=== PATIENT | female | born 1940 ===

== ENCOUNTER 2016-11-03 06:09 | Emergency (ER) | payer MEDICAID ==
[2016-11-03 06:09] VITALS: BMI 32.0
--- NOTE | 2016-11-03 06:41 | ED PDOC ---
HPI: General Adult Time Seen by Provider: 11/03/16 06:25 Chief Complaint (Nursing): ENT Problem Chief Complaint (Provider): nosebleed History Per: Patient History/Exam Limitations: no limitations Onset/Duration Of Symptoms: Mins Have you had recent travel within the past 21 days to any of the following countries: [place], [place], [place] or [place]?: No Current Symptoms Are (Timing): Still Present Additional Complaint(s): 76yo female with PMHx including HTN presents to the ED, with son, with c/o intermittent nosebleeds for past 3 weeks. Son states patient has had "many organs taken out." Patient reports nosebleed started acutely this morning from right nare. Patient does not take blood thinners. Denies fever, vomiting, precipitating factors. Past Medical History Reviewed: Historical Data, Nursing Documentation, Vital Signs Vital Signs: Last Vital Signs Temp 97.9 F 11/03/16 07:10 Pulse 75 11/03/16 07:10 Resp 16 11/03/16 07:10 BP 143/75 11/03/16 07:10 Pulse Ox 98 11/03/16 07:53 - Medical History PMH: Arthritis, Back Problems, Gastritis, HTN, Hypercholesterolemia, Osteoporosis Denies: Diabetes, Chronic Kidney Disease - Surgical History Surgical History: Back Surgery - Family History Family History: States: No Known Family Hx - Social History Current smoker - smoking cessation education provided: No Alcohol: None Drugs: Denies - Immunization History Hx Tetanus Toxoid Vaccination: No Hx Influenza Vaccination: Yes Hx Pneumococcal Vaccination: No - Home Medications Home Medications: Ambulatory Orders Medication Instructions Recorded Omeprazole [Prilosec] 20 mg PO DAILY 11/01/15 Aspirin [Ecotrin] 81 mg PO DAILY #0 tabec 11/02/15 Donepezil [Aricept] 5 mg PO HS #0 tab 11/02/15 Ergocalciferol (Vitamin D2) 50,000 unit PO SAT #0 capsule 11/02/15 [Vitamin D2] Losartan/Hydrochlorothiazide 1 tab PO DAILY #0 tablet 11/02/15 [Hyzaar 50-12.5 Tablet] Memantine HCl [Namenda] 5 mg PO DAILY #0 tablet 11/02/15 traMADol [Ultram] 50 mg PO TID PRN #0 tab 11/02/15 Simvastatin 10 mg PO HS 11/09/15 amLODIPine [Norvasc] 10 mg PO DAILY 11/09/15 Amoxicillin/Clavulanate [Augmentin 1 tab PO BID 7 Days 11/03/16 875 MG-125 MG] traMADol [Ultram] 50 mg PO TID #14 tab 11/03/16 - Allergies Allergies/Adverse Reactions: Allergies Allergy/AdvReac Type Severity Reaction Status Date / Time No Known Allergies Allergy Verified 11/01/15 12:45 Review of Systems ROS Statement: Except As Marked, All Systems Reviewed And Found Negative Constitutional: Negative for: Fever ENT: Positive for: Other (nosebleed ) Gastrointestinal: Negative for: Vomiting Physical Exam - Reviewed Nursing Documentation Reviewed: Yes Vital Signs Reviewed: Yes - Physical Exam Appears: Positive for: Well, No Acute Distress Head Exam: Positive for: ATRAUMATIC, NORMAL INSPECTION, NORMOCEPHALIC Skin: Positive for: Normal Color, Warm, Dry Eye Exam: Positive for: Normal appearance, EOMI, PERRL ENT: Positive for: Other (bleeding from right nare, no hematoma, no laceration, no clots ) Neck: Positive for: Normal, Painless ROM, Supple Cardiovascular/Chest: Positive for: Regular Rate, Rhythm. Negative for: Murmur , Tachycardia Respiratory: Positive for: Normal Breath Sounds. Negative for: Wheezing, Respiratory Distress Gastrointestinal/Abdominal: Positive for: Normal Exam, Bowel Sounds, Soft. Negative for: Tenderness Back: Positive for: Normal Inspection. Negative for: L CVA Tenderness, R CVA Tenderness Extremity: Positive for: Normal ROM. Negative for: Deformity, Swelling Neurologic/Psych: Positive for: Alert, Oriented - Laboratory Results Result Diagrams: 11/03/16 06:51 11/03/16 06:51 - ECG O2 Sat by Pulse Oximetry: 96 Pulse Ox Interpretation: Normal (RA) Medical Decision Making Medical Decision Makin: Impression: epistaxis Plan: Initially attempted 5.5 rhino rocket. Patient's nasal passage very small and narrow. Unsuccessful attempt. 4.5 rhino rocket was successful. Will observe patient in ED to ensure no further bleeding. Labs ordered. discussed plan w patient and son at bedside Patient s/o to Dr. Webster at 0700 pending labs and re-eval. Scribe Attestation: Documented by Tuan Turner acting as a scribe for Harjit Pope MD. Provider Scribe Attestation: All medical record entries made by the Scribe were at my direction and personally dictated by me. I have reviewed the chart and agree that the record accurately reflects my personal performance of the history, physical exam, medical decision making, and the department course for this patient. I have also personally directed, reviewed, and agree with the discharge instructions and disposition. Disposition - Clinical Impression Clinical Impression: Epistaxis - Patient ED Disposition Is Patient to be Admitted: Transfer of Care - Disposition Referrals: Phillip Mendez MD [Staff Provider] - Disposition: Transfer of Care Disposition Time: 07:00 Condition: STABLE Prescriptions: Amoxicillin/Clavulanate [Augmentin 875 MG-125 MG] 1 tab PO BID 7 Days traMADol [Ultram] 50 mg PO TID #14 tab Instructions: Nosebleed (ED) Print Language: FAROESE Patient Signed Over To: Mello Webster Handoff Comments: pending labs and re-eval
[2016-11-03 07:03] LABS: BASO % 0.8 % (0.0-2.0); EOS # 0.2 K/uL (0.0-0.7); EOS % 3.1 % (0.0-4.0); HEMATOCRIT 36.9 % (34.0-47.0); LYMPH # 1.5 K/uL (1.0-4.3); LYMPH % 23.9 % (20.0-40.0); MEAN CELL VOLUME 93.4 fl (81.0-99.0); MEAN CORPUSCULAR HEMOGLOBIN 31.1 pg (27.0-31.0); MEAN CORPUSCULAR HGB CONC 33.3 g/dL (33.0-37.0); MEAN PLATELET VOLUME 9.5 fl (7.2-11.7); MONO # 0.5 K/uL (0.0-0.8); MONO % 7.7 % (0.0-10.0); NEUT # 4.1 K/uL (1.8-7.0); NEUT % 64.5 % (50.0-75.0); NRBC % 0.1 % (0.0-0.0); RED CELL DISTRIBUTION WIDTH 12.8 % (11.5-14.5); WHITE BLOOD COUNT 6.4 K/uL (4.8-10.8)
[2016-11-03 07:20] VITALS: BP 143/75; PULSE 75; RESP 16; TEMP 97.9
--- NOTE | 2016-11-03 07:25 | ED PDOC ---
- Laboratory Results Result Diagrams: 11/03/16 06:51 11/03/16 06:51 - ECG O2 Sat by Pulse Oximetry: 98 (RA) Pulse Ox Interpretation: Normal Medical Decision Making Medical Decision Makin:00 Patient was transferred over to provider by Dr. Pope. Pending bloodwork. 8AM: Successful placement of rhinorocket but Dr. Pope, no longer bleeding. Instructed to keep in place until eval by ENT, patient states that she is likely going to remove it tonight, encouraged patient to keep it in for as long as possible. Told to return for re-bleeding, fevers, or other concerning symptoms. Scribe Attestation: Documented by Bienvenido Sunshine, acting as a scribe for Mello Webster MD. Provider Scribe Attestation: All medical record entries made by the Scribe were at my direction and personally dictated by me. I have reviewed the chart and agree that the record accurately reflects my personal performance of the history, physical exam, medical decision making, and the department course for this patient. I have also personally directed, reviewed, and agree with the discharge instructions Disposition - Clinical Impression Clinical Impression: Epistaxis - POA Present On Arrival: None - Disposition Referrals: Phillip Mendez MD [Staff Provider] - Disposition: Routine/Home Disposition Time: 07:53 Condition: STABLE Prescriptions: Amoxicillin/Clavulanate [Augmentin 875 MG-125 MG] 1 tab PO BID 7 Days traMADol [Ultram] 50 mg PO TID #14 tab Instructions: Nosebleed (ED) Print Language: ICELANDIC
[2016-11-03 07:27] LABS: ALB/GLOB RATIO 1.2 (1.0-2.1); ALKALINE PHOSPHATASE 78 U/L (38-126); ALT/SGPT 21 U/L (9-52); AST/SGOT 28 U/L (14-36); BILIRUBIN,TOTAL 0.3 mg/dl (0.2-1.3); BLOOD UREA NITROGEN 13 mg/dl (7-17); CALCIUM 9.5 mg/dL (8.4-10.2); CARBON DIOXIDE 26 mmol/L (22-30); CHLORIDE 106 mmol/L (98-107); GFR AFRICAN-AMERICAN > 60; GLUCOSE,RANDOM 106 mg/dL (65-105); POTASSIUM 4.5 MMOL/L (3.6-5.0); SODIUM 142 mmol/l (132-148)
[2016-11-03 07:37] LABS: PARTIAL THROMBOPLASTIN TIME 23.6 SECONDS (23.3-32.5)
[2016-11-06 05:15] VITALS: O2SAT 96
== END 2016-11-03 08:14 | disposition home or self-care (01) ==
LOC: H.ER 06:09
DX: R04.0 Epistaxis (principal); I10 Essential (primary) hypertension